=== PATIENT | female | born 1970 | race Two or more races ===

== ENCOUNTER 2024-09-30 11:25 | Emergency (ER) | payer OTHER ==
[~2024-09-30] VITALS: Ht 172.7 cm; Wt 128.4 kg
[2024-09-30] MEDS ORDERED: SYNJARDY XR 121 EACH PO (11:28)
[2024-09-30] MEDS ORDERED: COZAAR100 MG PO (11:28)
[2024-09-30] MEDS ORDERED: DEXAMETHASONE SODIUM PHOSPHATE 4 MG/ML VIAL IM STA (11:47)
[2024-09-30] MEDS ORDERED: KETOROLAC TROMETHAMINE 15 MG VIAL IM STA (11:47)
[2024-09-30] MEDS ORDERED: ORPHENADRINE CITRATE 30 MG/ML AMPUL IM STA (11:48)
[2024-09-30] MEDS ORDERED: NABUMETONE750 MG PO (12:59)
[2024-09-30] MEDS ORDERED: METAXALONE800 MG PO (12:59)
== END 2024-09-30 13:25 | disposition home or self-care (01) ==
LOC: ER 12:16
DX: S00.03XA Contusion of scalp, initial encounter (principal); S00.83XA Contusion of other part of head, initial encounter; W18.39XA Other fall on same level, initial encounter; Y93.89 Activity, other specified; Y92.59 Other trade areas as the place of occurrence of the external cause; Y99.9 Unspecified external cause status; E11.9 Type 2 diabetes mellitus without complications; Z79.84 Long term (current) use of oral hypoglycemic drugs; I10 Essential (primary) hypertension